=== PATIENT | female | born 1940 | race Caucasian/White ===

== ENCOUNTER 2018-11-11 13:58 | Emergency (ER) | payer MEDICARE, OTHER, SELFPAY ==
[2018-11-11 14:38] VITALS: BP 137/66; PULSE 61; RESP 16; TEMP 36.4; O2SAT 97; BMI 24.2
--- NOTE | 2018-11-11 14:44 | DI.CT.S_ITS ---
PROCEDURE: CT HEAD/BRAIN WO CON INDICATIONS: fall last week, now more falls TECHNIQUE: Noncontrast 4.5 mm thick angled axial sections acquired from the foramen magnum to the vertex, with coronal and sagittal reformats. For radiation dose reduction, the following was used: automated exposure control, adjustment of mA and/or kV according to patient size. COMPARISON: Outside Film, CT, CT HEAD WITHOUT CONTRAST, 11/05/2018, 22:51. FINDINGS: Image quality: Excellent. CSF spaces: Basal cisterns are patent. No extra-axial fluid collections. Ventricles are mildly prominent. Brain: No midline shift. No intracranial masses or hemorrhage. Fritz-white matter interface is normal. Moderate-sized areas of low attenuation are seen within the periventricular and deep white matter of the supratentorial brain, most pronounced within the bilateral frontal lobes. This appearance is similar to the previous exam. Skull and face: Calvarium and visualized facial bones are intact, without suspicious lesions. Sinuses: Visualized sinuses and mastoids are clear. IMPRESSION: 1. No acute intracranial hemorrhage. 2. Findings are suggestive of chronic small vessel ischemic changes. If there is clinical concern for acute stroke, please consider MRI for further evaluation. 3. No parenchymal volume loss. Dictated by: Shine Smith M.D. on 11/11/2018 at 14:37 Approved by: Shine Smith M.D. on 11/11/2018 at 14:38
--- NOTE | 2018-11-11 14:47 | ED.FALL ---
HPI - Fall General Chief Complaint: Fall Stated Complaint: 1 week ago fall/lack of balance/couple of falls Time Seen by Provider: 11/11/18 14:34 Source: patient Mode of arrival: Ambulatory History of Present Illness HPI Narrative: Patient is a 78-year-old female who presents with frequent falls. She was actually vacationing in [place] when she fell 7 days ago hitting her head and fracturing her right wrist. She was seen evaluated at emergency department where she had a head CT and a splint placed on her right wrist. She actually had a small puncture wound on the right temporal area to had a hard time stopping the bleeding. They finally were able to use Dermabond to stop it. She has fallen twice since then once yesterday she was going down stairs she thinks maybe she slipped on something it was wet outside she is not really sure. However this morning she fell again and she is not sure how. She did not hit her head either time. This morning she got up and went to the bathroom and she is not sure what happened but she fell. She denies any chest pain heart palpitations loss of consciousness nausea persistent vomiting numbness tingling or weakness. complaint: fall Related Data Previous Rx's Medication Instructions Recorded promethazine-codeine 5 - 10 ml PO Q4HP PRN #120 ml 03/04/16 Review of Systems Review of Systems ROS Unobtainable: All systems reviewed & are unremarkable except as noted in HPI and below Constitutional Constitutional: Reports frequent falls Eyes Eyes: Denies change in vision, Denies eye discharge, Denies irritation and Denies loss of vision ENT Ears, Nose, Mouth, and Throat: Denies change in voice, Denies neck pain and Denies sore throat Cardiovascular Cardiovascular: Denies dyspnea and Denies dyspnea on exertion Respiratory Respiratory: Denies cough, Denies dyspnea, Denies dyspnea on exertion and Denies wheezing Gastrointestinal Gastrointestinal: Denies abdominal pain, Denies change in bowel habits, Denies diarrhea, Denies nausea and Denies vomiting Genitourinary Genitourinary: Denies hematuria, Denies flank pain, Denies urinary incontinence and Denies urinary urgency Musculoskeletal Musculoskeletal: Reports as per HPI and Denies neck pain Integumentary/Breasts Skin/Breast: Denies pruritus, Denies erythema, Denies rash and Denies wounds Neurologic Neurologic: Reports system reviewed and no additional complaints, except as docu, Reports frequent falls and Denies loss of vision Allergic/Immunologic Allergic/Immunologic: Denies wheezing Exam Initial Vital Signs Initial Vital Signs: Vital Signs Temperature 97.6 F 11/11/18 14:38 Pulse Rate 61 11/11/18 14:38 Respiratory Rate 16 11/11/18 14:38 Blood Pressure 137/66 11/11/18 14:38 Pulse Oximetry 97 11/11/18 14:38 GENERAL: Well-appearing, well-nourished and in no acute distress. HEENT: Head contusion noted on the right temporal area Dermabond also noted no active bleeding,EOMI, pupils reactive, face symmetri CARDIOVASCULAR: Regular rate and rhythm without murmurs, rubs or gallops. RESPIRATORY: Breath sounds equal bilaterally, no wheezes rales or rhonchi. ABDOMEN: Soft, nontender. Normoactive bowel sounds all 4 quadrants. No guarding or rebound. EXTREMITIES: Normal range of motion, no clubbing or edema. Neurovascularly intact. Splint placed moving fingers good cap refill NEUROLOGICAL: Alert and oriented x4.Normal gait and speech. Cranial nerves II through XII grossly intact. SKIN: Warm, dry, no laceration, no petechiae, no rashes or lesions. [facility] Medical History Patient denies medical problems (Acute) Surgical History Status post colonoscopy Status post colonoscopy Status post knee surgery Family History (Updated 05/02/16 @ 00:00 by Conversion Provider) Brother Morbid obesity, unspecified obesity type Mother Essential hypertension Social History Smoking Status: Never smoker Family History Brother Morbid obesity, unspecified obesity type Mother Essential hypertension Social History Smoking Status: Never smoker Scores GCS [place] coma scale eye opening: Spontaneous Hunter coma scale verbal response: Orientated [place] coma scale motor response: Obey commands Hunter coma scale total score: 15 Course Orders Ordered: ED Orders 11/11/18 14:44 CT head/brain wo con Stat 11/11/18 14:47 Complete Blood Count AUTO DIFF Stat Comprehensive Metabolic Panel Stat Partial Thromboplastin Time Stat Prothrombin Time INR Stat 11/11/18 14:57 EKG-12 Lead Stat Vital Signs Vital signs: Vital Signs - 8 hr 11/11/18 14:38 11/11/18 16:37 Temperature 97.6 F Pulse Rate 61 66 Respiratory Rate 16 16 Blood Pressure 137/66 128/78 Pulse Oximetry 97 97 MDM - Fall Lab Data Attestation: I reviewed the patient's lab results. Result diagrams: 11/11/18 14:47 11/11/18 14:47 Labs: Lab Results 11/11/18 11/11/18 11/11/18 Range/Units 14:47 14:47 14:47 WBC 8.3 (4.5-11.0) X10^3/uL RBC 3.47 L (4.0-5.2) X10^6/uL Hgb 10.6 L (12.0-16.0) g/dL Hct 31.3 L (36-46) % MCV 90.3 (80-100) fL MCH 30.4 (26-34) PG MCHC 33.7 (30-36) % RDW 14.0 (11.6-14.8) % Plt Count 269 (150-400) X10^3/uL Neut % (Auto) 77.6 H (50-75) % Lymph % (Auto) 15.1 L (25-40) % Barber % (Auto) 6.1 (3-14) % Eos % (Auto) 0.5 L (2-4) % Baso % (Auto) 0.7 (0-2) % Neut # (Auto) 6500 (0831-4311) /uL Lymph # (Auto) 1300 (5257-0580) /uL Barber # (Auto) 500 (0-900) /uL Eos # (Auto) 0 (0-450) /uL Baso # (Auto) 100 (0-100) /uL PT 11.6 (10.1-12.7) SECONDS INR 1.0 (0.9-1.3) APTT 31 (26.4-36.2) SECONDS Sodium 140 (137-145) mmol/L Potassium 5.1 (3.4-5.1) mmol/L Chloride 104 (98-107) mmol/L Carbon Dioxide 27 (22-32) mmol/L BUN 34 H (7-17) mg/dL Creatinine 0.90 (0.52-1.04) mg/dL Estimated GFR > 60.0 (>60) mL/min BUN/Creatinine Ratio 37.8 H (6-22) Glucose 99 (80-110) mg/dL Calcium 9.6 (8.4-10.2) mg/dL Total Bilirubin 0.4 (0.2-1.3) mg/dL AST 32 (14-36) IU/L ALT 21 (9-52) IU/L Alkaline Phosphatase 74 (38-126) U/L Total Protein 7.2 (6.3-8.2) g/dL Albumin 4.3 (3.5-5.0) g/dL Globulin 2.9 (1.7-4.1) g/dL Albumin/Globulin Ratio 1.5 (1.0-2.8) Imaging Data CT scan - head: Radiologist's impression: PROCEDURE: CT HEAD/BRAIN WO CON INDICATIONS: fall last week, now more falls TECHNIQUE: Noncontrast 4.5 mm thick angled axial sections acquired from the foramen magnum to the vertex, with coronal and sagittal reformats. For radiation dose reduction, the following was used: automated exposure control, adjustment of mA and/or kV according to patient size. COMPARISON: Outside Film, CT, CT HEAD WITHOUT CONTRAST, 11/05/2018, 22:51. FINDINGS: Image quality: Excellent. CSF spaces: Basal cisterns are patent. No extra-axial fluid collections. Ventricles are mildly prominent. Brain: No midline shift. No intracranial masses or hemorrhage. Fritz-white matter interface is normal. Moderate-sized areas of low attenuation are seen within the periventricular and deep white matter of the supratentorial brain, most pronounced within the bilateral frontal lobes. This appearance is similar to the previous exam. Skull and face: Calvarium and visualized facial bones are intact, without suspicious lesions. Sinuses: Visualized sinuses and mastoids are clear. IMPRESSION: 1. No acute intracranial hemorrhage. 2. Findings are suggestive of chronic small vessel ischemic changes. If there is clinical concern for acute stroke, please consider MRI for further evaluation. 3. No parenchymal volume loss. Dictated by: Shine Smith M.D. on 11/11/2018 at 14:37 Approved by: Shine Smith M.D. on 11/11/2018 at 14:38 ECG Data Attestation: I personally reviewed and interpreted this ECG as follows: Prior ECG tracings: not available for review Interpretation: Normal sinus rhythm rate 53 p.r. interval 143 QRS [address] changes or T-wave inversions normal intervals MDM Narrative Medical decision making narrative: At this time no explanation for of frequent falls. She is slightly anemic but this time does not meet any kind of transfusion criteria still not actively bleeding. She has surgery scheduled for her wrist with [facility] next week. She is alert oriented x4 ambulatory steady gait in the ED. Discharge Plan Departure Patient Disposition: Home Clinical Impression: Fall Qualifiers: Encounter type: initial encounter Qualified Code(s): W19.XXXA - Unspecified fall, initial encounter Discharge Date/Time: 11/11/18 16:42 Instructions: How to Prevent Falls Activity Restrictions/Additional Instructions: *You have been diagnosed with frequent falls *What to do: At this time blood work and his CT and EKG are all reassuring. *Continue to take medications as directed *Follow up with your primary care provider in 2-3 days, please follow up with Orthopedics as scheduled for next week *Return to ER if you should have persistent vomiting, weakness, numbness or tingling or any new, worsening or concerning symptoms Prescriptions: No Action promethazine-codeine 6.25 MG/10 MG syrup 5 - 10 ml PO Q4HP PRNQty: 120 RF: 1 Referrals: Renetta Arndt MD [Primary Care Provider] -
[2018-11-11 14:52] LABS: Add Manual Diff / Slide Review NO; Basophils Absolute Auto 100 /uL (0-100); Basophils Percent Auto 0.7 % (0-2); Eosinophils Absolute Auto 0 /uL (0-450); Eosinophils Percent Auto 0.5 % (2-4); Hematocrit 31.3 % (36-46); Hemoglobin 10.6 g/dL (12.0-16.0); Lymphocytes Absolute Auto 1300 /uL (1100-4500); Lymphocytes Percent Auto 15.1 % (25-40); Mean Corpuscular HGB Conc 33.7 % (30-36); Mean Corpuscular Hemoglobin 30.4 PG (26-34); Mean Corpuscular Volume 90.3 fL (80-100); Monocytes Absolute Auto 500 /uL (0-900); Monocytes Percent Auto 6.1 % (3-14); Neutrophils Absolute Auto 6500 /uL (1500-7000); Neutrophils Percent Auto 77.6 % (50-75); Platelet Count 269 X10^3/uL (150-400); Red Blood Cell Count 3.47 X10^6/uL (4.0-5.2); White Blood Cell Count 8.3 X10^3/uL (4.5-11.0)
[2018-11-11 14:59] LABS: Prothrombin Time 11.6 SECONDS (10.1-12.7)
[2018-11-11 15:02] LABS: PTT Partial Thromboplastin Tim 31 SECONDS (26.4-36.2)
[2018-11-11 15:05] LABS: Alanine Aminotransferase 21 IU/L (9-52); Albumin 4.3 g/dL (3.5-5.0); Albumin Globulin Ratio 1.5 (1.0-2.8); Alkaline Phosphatase 74 U/L (38-126); Aspartate Aminotransferase 32 IU/L (14-36); BUN Creatinine Ratio 37.8 (6-22); Bilirubin Total 0.4 mg/dL (0.2-1.3); Blood Urea Nitrogen 34 mg/dL (7-17); Calcium 9.6 mg/dL (8.4-10.2); Carbon Dioxide 27 mmol/L (22-32); Chloride 104 mmol/L (98-107); Estimated Glomerular Filt Rate > 60.0 mL/min (>60); Globulin 2.9 g/dL (1.7-4.1); Glucose 99 mg/dL (80-110); HEMOLYSIS < 15 (0-50); Potassium 5.1 mmol/L (3.4-5.1); Sodium 140 mmol/L (137-145); Total Protein 7.2 g/dL (6.3-8.2)
--- NOTE | 2018-11-11 15:05 | PC.NURSE ---
Pt arrived with . Ambulatory with steady gait. reports she fell while in [place] last week, sustained fx to R wrist and LAC to R head in which an artery was knicked appears to have been dermabonded at other facility. Today reports increased falls 2 times within 24hrs described at feeling off balance and then falling. First fall was outside on wet stone steps, hit R fx'd wrist and R leg. 2nd fall was in her bathroom this morning without injury. denies NV, denies visual disturbance. NIH 0. IV placed and labs drawn and sent. Dr Pearce at bedside. gowned and pt going for CT head.
--- NOTE | 2018-11-11 16:22 | PC.NURSE ---
Pt resting in bed NAD eyes closed. at side
[2018-11-11 16:37] VITALS: BP 128/78; PULSE 66; RESP 16; O2SAT 97
== END 2018-11-11 16:42 | disposition home or self-care (01) ==
PROVIDERS: Emergency Provider Emergency Medicine; PCP Family Medicine
DX: Z91.81 History of falling (principal); W19.XXXA Unspecified fall, initial encounter
CPT/HCPCS: 36415; 70450; 80053; 85025; 85610; 85730; 93005; 99282; 99285